=== PATIENT | male | born 1990 | race Caucasian/White ===

== ENCOUNTER 2020-04-05 19:30 | Emergency (ER) | payer OTHER ==
[~2020-04-05] VITALS: Ht 185.4 cm; Wt 99.8 kg
[2020-04-05 19:39] VITALS: BP 141/88
--- NOTE | 2020-04-05 19:46 | NUR ---
PATIENT CAME TO ER BED 1 C/O ITCHY OPEN RASHES. PATIENT STATES THAT IT MIGHT BE A STAPH INFECTION. PATIENT STATES HE HAS HAD IT FOR OVER A YEAR NOW. PATIENT STATES THAT IT IS ITCHY. THERE IS YELLOW BLOODY DRAINAGE EXUDING FROM THE RASHES. THERE ARE 2 IN HIS NECK, 2 ON RIGHT ARM, 1 ON LEFT THIGH, 1 ON LEFT HIP1 ON THE RIGHT ANKLE. AND A FEW ON ON THE LEFT LEG. [id number]. CURRENTLY NOT ON ANY ANTIBIOTICS.
[2020-04-05] MEDS ORDERED: DOXYCYCLINE HYCLATE (100 MG) 100 MG TABLET ONE (19:56)
[2020-04-05] MEDS ORDERED: DOXYCYCLINE HYCLATE (100 MG) 100 MG TABLET PO ONE (20:00)
--- NOTE | 2020-04-05 20:00 | NUR ---
EMT AT BEDSIDE FOR BANDAGING OF WOUNDS/RASH
--- NOTE | 2020-04-05 20:05 | NUR ---
Patient discharged to home in stable condition. Written and verbal after care instructions given. Patient verbalizes understanding of instruction.
== END 2020-04-05 20:09 | disposition home or self-care (01) ==
LOC: ER 19:39
DX: L03.115 Cellulitis of right lower limb (principal)